=== PATIENT | male | born 2000 | race Caucasian/White ===

== ENCOUNTER 2021-05-19 22:53 | Emergency (ER) | payer BC ==
[~2021-05-19] VITALS: Ht 177.8 cm; Wt 68.2 kg
[2021-05-19] MEDS ORDERED: PROMETHAZINE D473 ML PO (23:53)
[2021-05-19] MEDS ORDERED: ZITHROMAX Z PA250 MG PO (23:53)
[2021-05-20 00:05] VITALS: BP 139/88; PULSE 88; TEMP 98.7
== END 2021-05-20 00:05 | disposition home or self-care (01) ==
LOC: COL.ER 22:53
DX: R04.2 Hemoptysis (principal); Z87.09 Personal history of other diseases of the respiratory system